=== PATIENT | female | born 1965 | race Caucasian/White ===

== ENCOUNTER → 2016-12-23 | Outpatient (CLI) | payer BC ==
[~2016-12-23] MED LIST: BENADRYL PO; CELEXA PO; DICLOFENAC SODI50 MG PO; GABAPENTIN300 MG; IMITREX6 MG/0.5 M SQ; INDERAL40 MG PO; NAPROXEN SODIU550 MG PO; NARATRIPTAN HC2.5 MG PO; PHENERGAN25 MG PO; RELPAX20 MG; RELPAX40 MG PO; SUMATRIPTA4 MG/0.5 M; SUMAVEL DO6 MG/0.5 M; SUMAVEL DO6 MG/0.5 M SQ; TOPAMAX PO; TREXIMET PO; WELLBUTRIN PO; ZOLOFT PO; ZOLOFT50 MG PO; ZOMIG5 MG/SPRAY
--- NOTE | ~2016-12-23 | CR7 ---
[facility] A Service of [facility] RADIOLOGY TEXT RESULTS PATIENT: AIXA ROBIN LOCATION: [facility] : 61 UNIT #: [id number] AGE: [address]: Kevan Landers MD SEX: F ORDER DR: [id number] [facility] [address] [place], [place] [address] [id number] MR#: [id number] Acc #: [id number] NAME: AIXA ROBIN : 1965 SEX: F STUDY DATE/TIME: 12/23/2016 17:11 UNIT: [facility] ROOM: STUDY DESCRIPTION: CR Abdomen Single AP View Attending Physician: Kevan Landers M.D. Referring Physician: Kevan Landers M.D. Ordering Physician: Kevan Landers M.D. Primary Care Physician: Farhad Phillips M.D. MEDICAL IMAGING REPORT This report is preliminary unless electronic signature is present INDICATIONS Renal calculi. Stone removal. FINDINGS AP radiograph of the abdomen compared to 07/15/2016 and 06/19/2016. The renal shadows are symmetric bilaterally. A small lower pole calculus is unchanged from the prior study. This measures up to 5 mm. No bladder calculi. There is a small phlebolith in the right pelvis. IMPRESSION The left nephrolithiasis is unchanged from 07/15/2016. Dictated by... Evaristo Murrell M.D. THIS IS AN ELECTRONICALLY VERIFIED REPORT Evaristo Murrell M.D. at 12/24/2016 12:13 PM KAR/jyotsna TD: 12/24/2016 09:22 JOB #: [id number] MEDICAL IMAGING REPORT COPY
== END | disposition home or self-care (01) ==
LOC: CRAD 16:32
DX: N20.0 Calculus of kidney (principal)
CPT/HCPCS: 74000